=== PATIENT | male | born 1995 | race Caucasian/White ===

== ENCOUNTER 2017-05-30 19:51 | Emergency (ER) | payer SELFPAY ==
[~2017-05-30] VITALS: Ht 180.3 cm; Wt 65.4 kg
[2017-05-30 20:15] VITALS: Ht 180.3 cm; Wt 65.4 kg
--- NOTE | 2017-05-30 22:49 | RADRPT ---
PROCEDURE: CT Brain without. CLINICAL INDICATION: Head trauma, pain. TECHNIQUE: A CT of the brain was performed on multidetector high-resolution CT scanner utilizing a xial sections from the skull base through the vertex without contrast. The scan was reviewed in sof t tissue brain and high frequency resolution bone algorithm windows. Images were reviewed on a high -resolution PACS workstation. One or more the following does reduction techniques were utilized: Aut omated exposure control, adjustment of the mA/ or kV according to patient's size, or use of iterativ e reconstruction technique. The exam CTDI = 45.01 mGy and the DLP = 720.23 mGy-cm. DICOM images are available. COMPARISON: None available. FINDINGS: The ventricles and sulci are age-appropriate. There is no intracranial hemorrhage, mass effect or mi dline shift. No abnormal intra-axial or extra-axial fluid collections are seen. The denson/white gregg er differentiation is preserved. No acute skull abnormality is noted. The visualized paranasal sinus es are essentially clear. Left frontal scalp swelling is noted without underlying skull fracture. IMPRESSION: 1. No acute intracranial hemorrhage, transcortical infarction or mass effect. 2. Left frontal scalp swelling is noted without underlying skull fracture. RPTAT: HFN .Hal Queen MD, MD Date Time Electronically viewed and signed by .Hal Queen MD, MD on 05/30/2017 22:48 .N/
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
--- NOTE | 2017-05-30 23:19 | RADRPT ---
PROCEDURE: XR Chest. CLINICAL INDICATION: Trauma. Pain.. TECHNIQUE: Single frontal chest x-ray. COMPARISON: None. FINDINGS: The cardiomediastinal silhouette is unremarkable. There is no congestive heart failure.. No focal i nfiltrate is seen. There is no pleural effusion. There is no pneumothorax. The osseous structures are unremarkable. IMPRESSION: 1. No active disease. RPTAT: HMVK .Florencio Dimas MD, MD Date Time Electronically viewed and signed by .Florencio Dimas MD, on 05/30/2017 23:19 .K/
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
[2017-05-31 00:20] VITALS: BP 120/82; PULSE 66; RESP 20
== END 2017-05-31 00:22 | disposition home or self-care (01) ==
LOC: E/R 19:51
DX: S01.01XA Laceration without foreign body of scalp, initial encounter (principal); F17.210 Nicotine dependence, cigarettes, uncomplicated; R40.2142 Coma scale, eyes open, spontaneous, at arrival to emergency department; R40.2252 Coma scale, best verbal response, oriented, at arrival to emergency department; R40.2362 Coma scale, best motor response, obeys commands, at arrival to emergency department; V49.40XA Driver injured in collision with unspecified motor vehicles in traffic accident, initial encounter
CPT/HCPCS: 70450; 71010; 72125